=== PATIENT | female | born 1985 | race Caucasian/White ===

== ENCOUNTER 2018-04-28 06:35 | Day surgery (SDC) | payer OTHER ==
[2018-04-28] MEDS ORDERED: OXYCODONE/ACETAMINOPHEN (5/325) TAB PO ×2 (07:30)
[2018-04-28] MEDS ORDERED: MEPERIDINE 25 MG INJ IV (07:30)
[2018-04-28] MEDS ORDERED: HYDROmorphONE 1 MG/5 ML IV SYRINGE IV (07:30)
[2018-04-28] MEDS ORDERED: DIPHENHYDRAMINE 50 MG INJ IV (07:30)
[2018-04-28] MEDS ORDERED: ONDANSETRON 4 MG INJ (07:30)
[2018-04-28] MEDS ORDERED: ONDANSETRON 4 MG INJ IV (07:30)
[2018-04-28] MEDS ORDERED: MIDAZOLAM 1 MG/ML 2 ML INJ (07:30)
[2018-04-28] MEDS ORDERED: SEVOFLURANE 15 MIN (07:30)
[2018-04-28] MEDS ORDERED: METOCLOPRAMIDE 10 MG INJ (07:30)
[2018-04-28] MEDS ORDERED: MEPERIDINE 100 MG INJ (08:00)
[2018-04-28] MEDS ORDERED: ESMOLOL 10 ML (08:17)
[2018-04-28] MEDS ORDERED: ROCURONIUM 50 MG INJ ×2 (08:17→09:07)
[2018-04-28] MEDS ORDERED: PROPOFOL 20 ML (08:17)
[2018-04-28] MEDS ORDERED: CEFAZOLIN 1 GM INJ (08:17)
[2018-04-28] MEDS: BUPIVACAINE LIPOSOME/PF 266 MG/20 ML VIAL INFIL (08:34)
[2018-04-28] MEDS: POLYMYXIN/BACITRACIN 1L IRRIG (08:35)
[2018-04-28] MEDS: EPINEPHrine 1 MG INJ (08:35)
[2018-04-28] MEDS ORDERED: METOPROLOL 5 MG INJ (09:35)
[2018-04-28] MEDS ORDERED: ACETAMINOPHEN 325 MG TAB PO (11:00)
[2018-04-28] MEDS ORDERED: HYDROCODONE/APAP (5/325) TAB PO (11:00)
[2018-04-28] MEDS ORDERED: morphine 2 MG INJ IV (11:00)
[2018-04-28] MEDS: HYDROmorphONE 1 MG/5 ML IV SYRINGE IV ×3 (11:10→11:48)
[2018-04-28] MEDS: ONDANSETRON 4 MG INJ IV (12:29)
== END 2018-04-28 12:53 | disposition home or self-care (01) ==
LOC: SDS 06:35
DX: N62 Hypertrophy of breast (principal); M54.2 Cervicalgia
CPT/HCPCS: 19318; 88307